=== PATIENT | male | born 1965 | race Caucasian/White ===

== ENCOUNTER → 2021-08-22 | Emergency (ER) | payer BC ==
[~2021-08-22] VITALS: Ht 188 cm; Wt 84.8 kg
== END | disposition left against medical advice (07) ==
LOC: ER 18:28
DX: M79.604 Pain in right leg (principal); R60.0 Localized edema; I82.401 Acute embolism and thrombosis of unspecified deep veins of right lower extremity

== ENCOUNTER 2021-08-23 10:38 | Emergency (ER) | payer BC ==
[~2021-08-23] VITALS: Ht 188 cm; Wt 83.9 kg
== END 2021-08-23 15:17 | disposition home or self-care (01) ==
LOC: ER 10:38
DX: I80.241 Phlebitis and thrombophlebitis of right peroneal vein (principal); I87.2 Venous insufficiency (chronic) (peripheral); M79.605 Pain in left leg; M79.604 Pain in right leg